=== PATIENT | male | born 1980 | race Caucasian/White ===

== ENCOUNTER 2023-04-08 21:56 | Emergency (ER) | payer OTHER ==
[~2023-04-08] VITALS: Ht 170.2 cm; Wt 74.8 kg
[2023-04-08 22:10] VITALS: BP 140/68; PULSE 82; RESP 18; TEMP 97.2; O2SAT 97
[2023-04-08] MEDS ORDERED: DICYCLOMINE HCL LIQUID 20 MG, ALUMINUM HYD/MAG/SIMETHICONE 30 ML, LIDOCAINE VISCOUS 2% ... PO ONE ×3 (23:30)
[2023-04-08] MEDS ORDERED: KETOROLAC 30 MG/ML VIAL IM ONE (23:30)
[2023-04-08] MEDS ORDERED: ALUMINUM HYD/MAG/SIMETHICONE 30 ML UDC ONE (23:42)
[2023-04-08] MEDS ORDERED: DICYCLOMINE HCL LIQUID 10 MG/5 ML UDC ONE (23:52)
[2023-04-08 23:58] LABS: BASOPHILS # (AUTO) 0.1 K/uL (0.00-0.22); BASOPHILS % (AUTO) 1.2 % (0.0-2.0); EOSINOPHILS # (AUTO) 0.3 K/uL (0-0.4); EOSINOPHILS % (AUTO) 4.3 % (0.0-4.0); HEMATOCRIT 40.6 % (36-52); LYMPHOCYTES # (AUTO) 2.2 K/uL (2.0-11.5); LYMPHOCYTES % (AUTO) 35.1 % (20.5-51.1); MEAN CORPUSCULAR HEMOGLOBIN 31 pg (27-31); MEAN CORPUSCULAR HGB CONC 34 g/dL (33-37); MEAN CORPUSCULAR VOLUME 88.7 fL (80-94); MONOCYTES # (AUTO) 0.9 K/uL (0.8-1.0); MONOCYTES % (AUTO) 14.1 % (1.7-9.3); NEUTROPHILS # (AUTO) 2.8 K/uL (1.8-7.7); NEUTROPHILS % (AUTO) 45.3 % (42.2-75.2); PLATELET COUNT (AUTO) 306 K/uL (140-450); RED BLOOD CELL COUNT(AUTO) 4.58 MIL/uL (4.20-6.10); RED CELL DISTRIBUTION WIDTH 13.4 % (11.6-13.7); WHITE BLOOD COUNT (AUTO) 6.2 K/uL (4.8-10.8)
[2023-04-09 00:07] LABS: CALCIUM 8.3 mg/dL (8.5-10.1); CARBON DIOXIDE 30.2 mmol/L (21-32); CREATININE 0.9 mg/dL (0.6-1.3)
[2023-04-09 00:14] LABS: ALBUMIN 3.6 g/dL (3.4-5.0); BILIRUBIN,DIRECT 0.1 mg/dL (0.0-0.3); TOTAL BILIRUBIN 0.2 mg/dL (0.0-1.0)
[2023-04-09 00:18] LABS: POTASSIUM 4.2 mmol/L (3.5-5.1)
[2023-04-09] MEDS ORDERED: MORPHINE SULFATE 4 MG/ML SYR IM ONE (01:50)
[2023-04-09] MEDS ORDERED: MAG-27 PO (03:35)
[2023-04-09] MEDS ORDERED: ACET-10509 PO (03:35)
[2023-04-09 04:03] VITALS: BP 140/68; PULSE 82; RESP 18; TEMP 97.2; O2SAT 97
== END 2023-04-09 04:02 | disposition home or self-care (01) ==
LOC: MED 21:56
DX: K42.9 Umbilical hernia without obstruction or gangrene (principal); Z79.899 Other long term (current) drug therapy
CPT/HCPCS: 36415; 74176; 80048; 80076; 83690; 85025; 93005; 96372; 99285; J1885; J2270

== ENCOUNTER 2023-05-19 10:59 | Emergency (ER) | payer OTHER ==
[~2023-05-19] VITALS: Ht 165.1 cm; Wt 99.8 kg
[~2023-05-19 10:59] MED LIST: ACET-10509 PO; MAG-27 PO
[2023-05-19 11:06] VITALS: BP 132/85; PULSE 87; RESP 19; TEMP 97.8; O2SAT 100
[2023-05-19] MEDS ORDERED: BENZ100C6 PO (12:49)
[2023-05-19] MEDS: DEXAMETHASONE 10 MG/ML VIAL IM ONE (13:11)
[2023-05-19 13:33] VITALS: BP 115/82; PULSE 90; RESP 20; TEMP 97.8; O2SAT 97
[2023-05-19 14:05] LABS: FLU A ANTIGEN negative (NEGATIVE); FLU B ANTIGEN NEGATIVE (NEGATIVE)
== END 2023-05-19 13:30 | disposition home or self-care (01) ==
LOC: MED 10:59
DX: J20.9 Acute bronchitis, unspecified (principal); Z20.822 Contact with and (suspected) exposure to COVID-19; Z79.899 Other long term (current) drug therapy
CPT/HCPCS: 71045; 87426; 87804; 96372; 99284; J1100